=== PATIENT | male | born 1945 | race Caucasian/White ===

== ENCOUNTER → 2020-07-05 | Outpatient (CLI) | payer OTHER | LOC: KOH-I 10:11 | DX: R06.09 Other forms of dyspnea (principal) | CPT/HCPCS: 71046 ==

== ENCOUNTER → 2020-07-18 | Outpatient (CLI) | payer OTHER | LOC: HEART 5 07:53 | DX: R07.9 Chest pain, unspecified (principal) | CPT/HCPCS: 78452; A9502; J2785 ==

== ENCOUNTER → 2020-09-01 | Outpatient (CLI) | payer OTHER | LOC: CT 09:33 | DX: R06.00 Dyspnea, unspecified (principal); R13.10 Dysphagia, unspecified; I20.9 Angina pectoris, unspecified; R91.1 Solitary pulmonary nodule | CPT/HCPCS: 36415; 71260; 82565; Q9965; Q9967 ==